=== PATIENT | male | born 1935 | race Asian ===

== ENCOUNTER 2018-08-20 19:25 | Inpatient (IN) | payer MEDICARE, OTHER ==
[~2018-08-20] VITALS: Ht 167.6 cm; Wt 74.5 kg
[~2018-08-20 19:25] MED LIST: ASPI-556 PO; CALC1TAB15 PO; CIPR-278 PO; CLOP75TA3; GLYB2.5T5 PO; LOSARTAN; METO50TA18 PO; OMEP20 PO; TAMS0.4C32 PO
[2018-08-20] MEDS ORDERED: ISOS60TA4 PO (19:53)
[2018-08-20] MEDS ORDERED: FINA5TAB41 PO (19:53)
[2018-08-20] MEDS ORDERED: AMLO-515 PO (19:53)
[2018-08-20] MEDS ORDERED: GLIM2 PO (19:53)
[2018-08-20] MEDS ORDERED: CIPR-278 PO (19:53)
[2018-08-20] MEDS ORDERED: EZET10 PO (19:53)
[2018-08-20] MEDS ORDERED: ATOR20TA86 PO (19:53)
[2018-08-20] MEDS ORDERED: METO50 PO (19:53)
[2018-08-20 19:58] LABS: GLUCOSE,POINT OF CARE 276 MG/DL (70-110)
[2018-08-20] MEDS ORDERED: 0.9% SODIUM CHLORIDE 10 ML SYRINGE IVP PRN (20:30)
[2018-08-20 20:54] LABS: BASOPHILS % (AUTO) 0.3 % (0.0-2.0); EOSINOPHILS % (AUTO) 1.3 % (1.0-6.0); HEMATOCRIT 36.9 % (41-53); HEMOGLOBIN 12.8 g/dL (13.5-17.5); LYMPHOCYTES # (AUTO) 0.9 K/uL (1.0-4.8); LYMPHOCYTES % (AUTO) 15.4 % (22.0-44.0); MEAN CORPUSCULAR HEMOGLOBIN 34.2 pg (26.0-34.0); MEAN CORPUSCULAR HGB CONC 34.6 G/dL (31.0-37.0); MEAN CORPUSCULAR VOLUME 99 fL (80-100); MONOCYTES # (AUTO) 0.5 K/uL (0.1-1.0); MONOCYTES % (AUTO) 7.9 % (2.0-9.0); NEUTROPHILS # (AUTO) 4.5 K/uL (1.8-7.7); NEUTROPHILS % (AUTO) 75.1 % (40.0-70.0); PLATELET COUNT (AUTO) 219 K/uL (150-450); RED BLOOD CELL COUNT(AUTO) 3.74 MIL/uL (4.50-5.90); RED CELL DISTRIBUTION WIDTH 12.1 % (11.5-14.5)
[2018-08-20 21:11] LABS: ANION GAP 13 mmol/L (8-16); CALCIUM, TOTAL 8.8 mg/dL (8.8-10.5); CARBON DIOXIDE 24 mmol/L (22-29); CHLORIDE 89 mmol/L (98-107); CREATININE 1.28 mg/dL (0.60-1.30); GLOMERULAR FILTR. RATE CALC 54 mL/min (>60); GLUCOSE,RANDOM 303 mg/dL (70-110); POTASSIUM 4.4 mmol/L (3.5-5.1); SODIUM SERUM 126 mmol/L (136-145); UREA NITROGEN, BLOOD 16 mg/dL (7-18)
[2018-08-20 21:17] LABS: ALANINE AMINOTRANSFERASE 56 U/L (12-78); ALBUMIN 3.7 g/dL (3.4-5.0); ALKALINE PHOSPHATASE 66 U/L (46-116); ASPARTATE AMINOTRANSFERASE 35 U/L (15-37); BILIRUBIN,TOTAL 0.7 mg/dL (0.1-1.0); TOTAL PROTEIN, SERUM 7.3 g/dL (6.4-8.2)
[2018-08-20 21:23] LABS: LACTIC ACID 2.5 mmol/L (0.4-2.0)
[2018-08-20] MEDS ORDERED: CefTRIAXone 1 GM/DEXTROSE 50 ML IV ONE (21:30)
[2018-08-20] MEDS ORDERED: CloNIDine HCL 0.1 MG TABLET PO ONE (21:30)
[2018-08-20] MEDS ORDERED: SODIUM CHLORIDE 0.9% 1,000 ML IV ONE ×2 (21:30)
[2018-08-20] MEDS ORDERED: OxyCODONE HCL/ACETAMINOPHEN 5-325 MG TABLET PO PRN (22:00)
[2018-08-20] MEDS ORDERED: ONDANSETRON HCL 4 MG/2 ML VIAL IVP PRN ×2 (22:00→23:15)
[2018-08-20] MEDS ORDERED: ACETAMINOPHEN 325 MG TABLET PO PRN ×2 (22:00→23:15)
[2018-08-20] MEDS ORDERED: BISACODYL 10 MG RECTAL RECTAL SUPPOSITORY PR PRN (23:15)
[2018-08-20] MEDS ORDERED: ZOLPIDEM TARTRATE 5 MG TABLET PO PRN (23:15)
[2018-08-20] MEDS: HEPARIN SODIUM,PORCINE 5,000 UNITS/ML VIAL SQ SCH (23:27)
[2018-08-20 23:47] LABS: APPEARANCE,URINE TURBID (CLEAR); BILIRUBIN,URINE NEGATIVE (NEGATIVE); GLUCOSE, URINE (UA) 500 mg/dL (NEGATIVE); KETONES,URINE TRACE mg/dL (NEGATIVE); LEUKOCYTE ESTERASE ,URINE SMALL (NEGATIVE); NITRATE,URINE NEGATIVE (NEGATIVE); OCCULT BLOOD,URINE LARGE (NEGATIVE); PH,URINE 6.5 (5.0-8.0); PROTEIN,URINE SEE CONFIRM (NEGATIVE)
[2018-08-20 23:58] LABS: RBC,URINE Full Field /HPF (0-2)
[2018-08-21 00:06] LABS: BACTERIA,URINE None Seen /HPF (None Seen)
[2018-08-21 00:07] LABS: SQUAMOUS EPITHELIAL CELL,UR None Seen /LPF (None Seen)
[2018-08-21 00:08] LABS: SULFOSALICYLIC ACID,URINE 1+ (Negative)
[2018-08-21] MEDS: MORPHINE SULFATE 2 MG/ML SYRINGE IVP PRN (03:50)
[2018-08-21 06:21] LABS: BASOPHILS % (AUTO) 0.2 % (0.0-2.0); EOSINOPHILS % (AUTO) 1.2 % (1.0-6.0); HEMATOCRIT 33.4 % (41-53); HEMOGLOBIN 11.6 g/dL (13.5-17.5); LYMPHOCYTES # (AUTO) 1.5 K/uL (1.0-4.8); MEAN CORPUSCULAR HEMOGLOBIN 34.7 pg (26.0-34.0); MEAN CORPUSCULAR HGB CONC 34.7 G/dL (31.0-37.0); MEAN CORPUSCULAR VOLUME 100 fL (80-100); MONOCYTES # (AUTO) 0.6 K/uL (0.1-1.0); MONOCYTES % (AUTO) 9.5 % (2.0-9.0); NEUTROPHILS # (AUTO) 4.4 K/uL (1.8-7.7); NEUTROPHILS % (AUTO) 66.1 % (40.0-70.0); PLATELET COUNT (AUTO) 183 K/uL (150-450); RED BLOOD CELL COUNT(AUTO) 3.34 MIL/uL (4.50-5.90); RED CELL DISTRIBUTION WIDTH 12.1 % (11.5-14.5)
[2018-08-21 06:53] LABS: ALANINE AMINOTRANSFERASE 44 U/L (12-78); ALBUMIN 3.1 g/dL (3.4-5.0); ALKALINE PHOSPHATASE 56 U/L (46-116); ANION GAP 9 mmol/L (8-16); ASPARTATE AMINOTRANSFERASE 32 U/L (15-37); BILIRUBIN,TOTAL 0.4 mg/dL (0.1-1.0); CALCIUM, TOTAL 8.3 mg/dL (8.8-10.5); CARBON DIOXIDE 25 mmol/L (22-29); CHLORIDE 97 mmol/L (98-107); CREATININE 0.85 mg/dL (0.60-1.30); GLUCOSE,RANDOM 123 mg/dL (70-110); POTASSIUM 3.8 mmol/L (3.5-5.1); SODIUM SERUM 131 mmol/L (136-145); TOTAL PROTEIN, SERUM 6.2 g/dL (6.4-8.2); UREA NITROGEN, BLOOD 13 mg/dL (7-18)
[2018-08-21 06:54] LABS: GLOMERULAR FILTR. RATE CALC > 60 mL/min (>60)
[2018-08-21] MEDS: TAMSULOSIN HCL 0.4 MG CAPSULE PO SCH ×2 (08:50→20:46)
[2018-08-21] MEDS: ISOSORBIDE MONONITRATE 60 MG ER TABLET PO SCH (08:50)
[2018-08-21] MEDS: DOCUSATE SODIUM 100 MG CAPSULE PO SCH ×2 (08:50→20:46)
[2018-08-21] MEDS: HEPARIN SODIUM,PORCINE 5,000 UNITS/ML VIAL SQ SCH ×3 (08:50→23:58)
[2018-08-21] MEDS: PANTOPRAZOLE SODIUM 40 MG DR TABLET PO SCH (08:50)
[2018-08-21 09:43] LABS: PROSTATE SPECIFIC ANTIGEN < 0.13 ng/mL (0.00-4.00)
[2018-08-21] MEDS: FINASTERIDE 5 MG TABLET PO SCH (11:08)
[2018-08-21] MEDS: ASPIRIN 81 MG EC TABLET PO SCH (11:08)
[2018-08-21] MEDS: EZETIMIBE 10 MG TABLET PO SCH (11:08)
[2018-08-21] MEDS: GLIMEPIRIDE 2 MG TABLET PO SCH (11:09)
[2018-08-21] MEDS: ATORVASTATIN CALCIUM 20 MG TABLET PO SCH (11:09)
[2018-08-21 15:06] VITALS: BP 124/71
[2018-08-21 18:23] LABS: GLUCOMETER DEV NAME(LOC) 6N.1; GLUCOSE,POINT OF CARE 214 MG/DL (70-110)
[2018-08-21 20:29] VITALS: BP 145/73
[2018-08-21 21:03] LABS: GLUCOMETER DEV NAME(LOC) 6N.1; GLUCOSE,POINT OF CARE 194 MG/DL (70-110)
[2018-08-21] MEDS: CefTRIAXone 1 GM/DEXTROSE 50 ML IV SCH (21:30)
[2018-08-21] MEDS ORDERED: SODIUM CHLORIDE 0.9% 250 ML IV ONE (21:31)
[2018-08-21] MEDS: HYDROCODONE/ACETAMINOPHEN 5-325 MG TABLET PO PRN (23:57)
[2018-08-22 00:16] VITALS: BP 102/51
[2018-08-22 04:41] VITALS: BP 128/53
[2018-08-22 07:19] VITALS: BP 136/57
[2018-08-22] MEDS ORDERED: LIDOCAINE 2% 5 ML JELLY TP ONE (09:00)
[2018-08-22] MEDS ORDERED: SODIUM CL IRRIG SOLN BOTTLE 250 ML IRRIG ONE (09:39)
[2018-08-22] MEDS: MORPHINE SULFATE 2 MG/ML SYRINGE IVP PRN (09:46)
[2018-08-22] MEDS: EZETIMIBE 10 MG TABLET PO SCH (10:03)
[2018-08-22] MEDS: PANTOPRAZOLE SODIUM 40 MG DR TABLET PO SCH (10:03)
[2018-08-22] MEDS: FINASTERIDE 5 MG TABLET PO SCH (10:03)
[2018-08-22] MEDS: ATORVASTATIN CALCIUM 20 MG TABLET PO SCH (10:03)
[2018-08-22] MEDS: TAMSULOSIN HCL 0.4 MG CAPSULE PO SCH ×2 (10:04→20:15)
[2018-08-22] MEDS: ASPIRIN 81 MG EC TABLET PO SCH (10:04)
[2018-08-22] MEDS: ISOSORBIDE MONONITRATE 60 MG ER TABLET PO SCH (10:04)
[2018-08-22] MEDS: HEPARIN SODIUM,PORCINE 5,000 UNITS/ML VIAL SQ SCH ×3 (10:05→22:47)
[2018-08-22] MEDS: GLIMEPIRIDE 2 MG TABLET PO SCH (10:06)
[2018-08-22] MEDS: DOCUSATE SODIUM 100 MG CAPSULE PO SCH ×2 (10:08→20:15)
[2018-08-22 11:31] VITALS: BP 137/82
[2018-08-22] MEDS ORDERED: RINGERS SOLUTION,LACTATED 1,000 ML IV ONE ×2 (11:45→11:48)
[2018-08-22] MEDS ORDERED: DEXTROSE IV ONE (11:48)
[2018-08-22] MEDS ORDERED: SODIUM CHL IV ONE (11:48)
[2018-08-22] MEDS ORDERED: SODIUM CL IRRIG SOLN BAG 3,000 ML IRRIG ONE (11:57)
[2018-08-22] MEDS ORDERED: PROPOFOL 1% 20 ML VIAL IVP ONE (12:00)
[2018-08-22] MEDS ORDERED: ONDANSETRON HCL 4 MG/2 ML VIAL IVP ONE (12:00)
[2018-08-22] MEDS ORDERED: ALBUTEROL SULFATE HFA 90 MCG/PUFF 8 GM INHALER IH ONE (12:00)
[2018-08-22] MEDS ORDERED: 0.9% SODIUM CHLORIDE 10 ML VIAL IVP ONE (12:00)
[2018-08-22] MEDS ORDERED: GLYCOPYRROLATE 0.2 MG/ML VIAL IM ONE (12:00)
[2018-08-22] MEDS ORDERED: NEOSTIGMINE METHYLSULFATE 1 MG/ML 10 ML VIAL IVP ONE (12:00)
[2018-08-22] MEDS ORDERED: LIDOCAINE/PF 2% 5 ML VIAL INJ ONE (12:00)
[2018-08-22] MEDS ORDERED: EPHEDrine SULFATE 50 MG/ML VIAL IM ONE (12:00)
[2018-08-22] MEDS ORDERED: FentaNYL CITRATE-PF 100 MCG/2 ML VIAL IVP ONE (12:00)
[2018-08-22] MEDS ORDERED: HYDROmorphone 2 MG/ML SYRINGE IVP PRN (13:45)
[2018-08-22] MEDS ORDERED: FentaNYL CITRATE-PF 100 MCG/2 ML VIAL IVP PRN (13:45)
[2018-08-22 15:11] VITALS: BP 95/56
[2018-08-22 17:14] LABS: GLUCOMETER DEV NAME(LOC) 6N.1; GLUCOSE,POINT OF CARE 154 MG/DL (70-110)
[2018-08-22 17:14] LABS: GLUCOMETER DEV NAME(LOC) 6N.1; GLUCOSE,POINT OF CARE 274 MG/DL (70-110)
[2018-08-22 20:34] VITALS: BP 138/53
[2018-08-22] MEDS: CefTRIAXone 1 GM/DEXTROSE 50 ML IV SCH (21:52)
[2018-08-23] VITALS (8 sets, daily range): BP systolic 125–160; BP diastolic 63–85
[2018-08-23] MEDS: MAGNESIUM HYDROXIDE SUSPENSION 30 ML UDCUP PO PRN (02:42)
[2018-08-23] MEDS ORDERED: SODIUM CL IRRIG SOLN BOTTLE 250 ML IRRIG ONE (02:47)
[2018-08-23 05:28] LABS: BASOPHILS % (AUTO) 0.1 % (0.0-2.0); EOSINOPHILS % (AUTO) 0.8 % (1.0-6.0); HEMATOCRIT 30.1 % (41-53); HEMOGLOBIN 10.6 g/dL (13.5-17.5); LYMPHOCYTES # (AUTO) 1.1 K/uL (1.0-4.8); LYMPHOCYTES % (AUTO) 11.8 % (22.0-44.0); MEAN CORPUSCULAR HEMOGLOBIN 35.4 pg (26.0-34.0); MEAN CORPUSCULAR HGB CONC 35.2 G/dL (31.0-37.0); MEAN CORPUSCULAR VOLUME 101 fL (80-100); MONOCYTES # (AUTO) 0.9 K/uL (0.1-1.0); MONOCYTES % (AUTO) 10.1 % (2.0-9.0); NEUTROPHILS # (AUTO) 7.2 K/uL (1.8-7.7); NEUTROPHILS % (AUTO) 77.2 % (40.0-70.0); PLATELET COUNT (AUTO) 173 K/uL (150-450)
[2018-08-23] MEDS: OXYGEN THERAPY IH SCH ×2 (08:00→22:54)
[2018-08-23] MEDS: HEPARIN SODIUM,PORCINE 5,000 UNITS/ML VIAL SQ SCH ×2 (08:00→16:00)
[2018-08-23] MEDS: ASPIRIN 81 MG EC TABLET PO SCH (08:53)
[2018-08-23] MEDS: FINASTERIDE 5 MG TABLET PO SCH (08:53)
[2018-08-23] MEDS: GLIMEPIRIDE 2 MG TABLET PO SCH (08:53)
[2018-08-23] MEDS: PANTOPRAZOLE SODIUM 40 MG DR TABLET PO SCH (08:54)
[2018-08-23] MEDS: DOCUSATE SODIUM 100 MG CAPSULE PO SCH ×2 (08:54→20:07)
[2018-08-23] MEDS: TAMSULOSIN HCL 0.4 MG CAPSULE PO SCH ×2 (08:54→20:07)
[2018-08-23] MEDS: ATORVASTATIN CALCIUM 20 MG TABLET PO SCH (08:54)
[2018-08-23] MEDS: ISOSORBIDE MONONITRATE 60 MG ER TABLET PO SCH (08:54)
[2018-08-23] MEDS: EZETIMIBE 10 MG TABLET PO SCH (08:55)
[2018-08-23] MEDS ORDERED: IPRATROPIUM BROMIDE 0.5 MG/2.5 ML NEB SOLUTION NEB PRN (09:45)
[2018-08-23] MEDS ORDERED: ALBUTEROL SULFATE 2.5 MG/0.5 ML NEB SOLUTION NEB PRN (09:45)
[2018-08-23 15:28] LABS: ALANINE AMINOTRANSFERASE 28 U/L (12-78); ALBUMIN 2.8 g/dL (3.4-5.0); ALKALINE PHOSPHATASE 48 U/L (46-116); ANION GAP 6 mmol/L (8-16); ASPARTATE AMINOTRANSFERASE 29 U/L (15-37); BILIRUBIN,TOTAL 0.5 mg/dL (0.1-1.0); CALCIUM, TOTAL 8.2 mg/dL (8.8-10.5); CARBON DIOXIDE 27 mmol/L (22-29); CHLORIDE 94 mmol/L (98-107); CREATININE 1.13 mg/dL (0.60-1.30); GLUCOSE,RANDOM 172 mg/dL (70-110); POTASSIUM 4.1 mmol/L (3.5-5.1); SODIUM SERUM 127 mmol/L (136-145); TOTAL PROTEIN, SERUM 5.9 g/dL (6.4-8.2); UREA NITROGEN, BLOOD 14 mg/dL (7-18)
[2018-08-23 15:29] LABS: GLOMERULAR FILTR. RATE CALC > 60 mL/min (>60)
[2018-08-23] MEDS ORDERED: SODIUM CHLORIDE 0.9% 1,000 ML IV SCH (16:30)
[2018-08-23 20:20] LABS: HEMATOCRIT 28.7 % (41-53)
[2018-08-23] MEDS: CefTRIAXone 1 GM/DEXTROSE 50 ML IV SCH (22:54)
[2018-08-24] MEDS: HYDROCODONE/ACETAMINOPHEN 5-325 MG TABLET PO PRN ×2 (01:18→22:16)
[2018-08-24] MEDS: GuaiFENesin [SUGAR-FREE] 200 MG/10 ML SOLUTION UDCUP PO PRN (01:46)
[2018-08-24 02:02] LABS: HEMATOCRIT 27.8 % (41-53); HEMOGLOBIN 9.5 g/dL (13.5-17.5)
[2018-08-24 04:22] VITALS: BP 150/76
[2018-08-24 06:49] LABS: HEMATOCRIT 28.6 % (41-53)
[2018-08-24 07:05] VITALS: BP 142/73
[2018-08-24] MEDS: DOCUSATE SODIUM 100 MG CAPSULE PO SCH ×2 (08:59→19:39)
[2018-08-24] MEDS: FINASTERIDE 5 MG TABLET PO SCH (08:59)
[2018-08-24] MEDS: ASPIRIN 81 MG EC TABLET PO SCH (08:59)
[2018-08-24] MEDS: HEPARIN SODIUM,PORCINE 5,000 UNITS/ML VIAL SQ SCH ×4 (09:00→23:46)
[2018-08-24] MEDS: TAMSULOSIN HCL 0.4 MG CAPSULE PO SCH ×2 (09:03→19:39)
[2018-08-24] MEDS: PANTOPRAZOLE SODIUM 40 MG DR TABLET PO SCH (09:03)
[2018-08-24] MEDS: ISOSORBIDE MONONITRATE 60 MG ER TABLET PO SCH (09:03)
[2018-08-24] MEDS: ATORVASTATIN CALCIUM 20 MG TABLET PO SCH (09:03)
[2018-08-24] MEDS: GLIMEPIRIDE 2 MG TABLET PO SCH (09:03)
[2018-08-24] MEDS: EZETIMIBE 10 MG TABLET PO SCH (09:04)
[2018-08-24] MEDS: MORPHINE SULFATE 2 MG/ML SYRINGE IVP PRN (09:07)
[2018-08-24] MEDS ORDERED: SODIUM CHLORIDE 0.9% IRRIG BTL 1,000 ML IRRIG ONE (09:13)
[2018-08-24 11:30] VITALS: BP 115/56
[2018-08-24 15:02] VITALS: BP 142/73
[2018-08-24 15:43] LABS: BASOPHILS % (AUTO) 0.3 % (0.0-2.0); EOSINOPHILS % (AUTO) 1.9 % (1.0-6.0); HEMATOCRIT 27.3 % (41-53); HEMOGLOBIN 9.5 g/dL (13.5-17.5); LYMPHOCYTES % (AUTO) 13.3 % (22.0-44.0); MEAN CORPUSCULAR HEMOGLOBIN 35.1 pg (26.0-34.0); MEAN CORPUSCULAR HGB CONC 34.7 G/dL (31.0-37.0); MEAN CORPUSCULAR VOLUME 101 fL (80-100); MONOCYTES # (AUTO) 0.8 K/uL (0.1-1.0); MONOCYTES % (AUTO) 9.6 % (2.0-9.0); NEUTROPHILS # (AUTO) 5.9 K/uL (1.8-7.7); NEUTROPHILS % (AUTO) 74.9 % (40.0-70.0); PLATELET COUNT (AUTO) 169 K/uL (150-450); RED BLOOD CELL COUNT(AUTO) 2.69 MIL/uL (4.50-5.90); RED CELL DISTRIBUTION WIDTH 12.3 % (11.5-14.5)
[2018-08-24] MEDS: MAGNESIUM HYDROXIDE SUSPENSION 30 ML UDCUP PO PRN (16:03)
[2018-08-24 16:23] LABS: ALANINE AMINOTRANSFERASE 26 U/L (12-78); ALBUMIN 2.6 g/dL (3.4-5.0); ALKALINE PHOSPHATASE 47 U/L (46-116); ANION GAP 0 mmol/L (8-16); ASPARTATE AMINOTRANSFERASE 24 U/L (15-37); BILIRUBIN,TOTAL 0.4 mg/dL (0.1-1.0); CALCIUM, TOTAL 8.2 mg/dL (8.8-10.5); CARBON DIOXIDE 32 mmol/L (22-29); CHLORIDE 93 mmol/L (98-107); CREATININE 1.12 mg/dL (0.60-1.30); GLUCOSE,RANDOM 196 mg/dL (70-110); POTASSIUM 4.2 mmol/L (3.5-5.1); SODIUM SERUM 125 mmol/L (136-145); TOTAL PROTEIN, SERUM 5.8 g/dL (6.4-8.2); UREA NITROGEN, BLOOD 13 mg/dL (7-18)
[2018-08-24 16:26] LABS: GLOMERULAR FILTR. RATE CALC > 60 mL/min (>60)
[2018-08-24 19:30] VITALS: BP 131/80
[2018-08-24] MEDS: OXYGEN THERAPY IH SCH ×2 (20:00→23:50)
[2018-08-24] MEDS ORDERED: SODIUM CL IRRIG SOLN BOTTLE 250 ML IRRIG ONE (21:21)
[2018-08-24] MEDS: CefTRIAXone 1 GM/DEXTROSE 50 ML IV SCH (22:01)
[2018-08-24 23:21] VITALS: BP 128/71
[2018-08-25] MEDS: MORPHINE SULFATE 2 MG/ML SYRINGE IVP PRN (00:40)
[2018-08-25 03:27] VITALS: BP 111/59
[2018-08-25 07:29] VITALS: BP 154/64
[2018-08-25] MEDS: TAMSULOSIN HCL 0.4 MG CAPSULE PO SCH ×2 (08:55→20:22)
[2018-08-25] MEDS: DOCUSATE SODIUM 100 MG CAPSULE PO SCH ×2 (08:55→21:00)
[2018-08-25] MEDS: OXYGEN THERAPY IH SCH (08:55)
[2018-08-25] MEDS: GLIMEPIRIDE 2 MG TABLET PO SCH (08:56)
[2018-08-25] MEDS: FINASTERIDE 5 MG TABLET PO SCH (08:56)
[2018-08-25] MEDS: PANTOPRAZOLE SODIUM 40 MG DR TABLET PO SCH (08:57)
[2018-08-25] MEDS: ASPIRIN 81 MG EC TABLET PO SCH (08:57)
[2018-08-25] MEDS: METOPROLOL TARTRATE 50 MG TABLET PO SCH ×2 (08:57→20:22)
[2018-08-25] MEDS: ISOSORBIDE MONONITRATE 60 MG ER TABLET PO SCH (08:57)
[2018-08-25] MEDS: EZETIMIBE 10 MG TABLET PO SCH (08:58)
[2018-08-25] MEDS: ATORVASTATIN CALCIUM 20 MG TABLET PO SCH (08:58)
[2018-08-25] MEDS: HEPARIN SODIUM,PORCINE 5,000 UNITS/ML VIAL SQ SCH ×2 (08:59→16:40)
[2018-08-25] MEDS ORDERED: SODIUM CHLORIDE 0.9% IRRIG BTL 1,000 ML IRRIG ONE ×2 (10:27→21:13)
[2018-08-25 10:53] VITALS: BP 125/68
[2018-08-25] MEDS: MAGNESIUM HYDROXIDE SUSPENSION 30 ML UDCUP PO PRN (11:23)
[2018-08-25 15:13] VITALS: BP 129/64
[2018-08-25 19:57] VITALS: BP 134/70
[2018-08-25] MEDS: CefTRIAXone 1 GM/DEXTROSE 50 ML IV SCH (21:21)
[2018-08-25 23:13] VITALS: BP 126/67
[2018-08-26] MEDS: MORPHINE SULFATE 2 MG/ML SYRINGE IVP PRN (02:56)
[2018-08-26] MEDS: HYDROCODONE/ACETAMINOPHEN 5-325 MG TABLET PO PRN (03:09)
[2018-08-26 03:45] VITALS: BP 131/63
[2018-08-26] MEDS ORDERED: SODIUM CHLORIDE 0.9% 250 ML IV ONE (05:22)
[2018-08-26 06:13] LABS: BASOPHILS % (AUTO) 0.4 % (0.0-2.0); HEMATOCRIT 24.3 % (41-53); HEMOGLOBIN 8.6 g/dL (13.5-17.5); LYMPHOCYTES # (AUTO) 0.9 K/uL (1.0-4.8); LYMPHOCYTES % (AUTO) 14.8 % (22.0-44.0); MEAN CORPUSCULAR HEMOGLOBIN 35.4 pg (26.0-34.0); MEAN CORPUSCULAR HGB CONC 35.3 G/dL (31.0-37.0); MEAN CORPUSCULAR VOLUME 100 fL (80-100); MONOCYTES # (AUTO) 0.6 K/uL (0.1-1.0); MONOCYTES % (AUTO) 10.2 % (2.0-9.0); NEUTROPHILS # (AUTO) 4.1 K/uL (1.8-7.7); NEUTROPHILS % (AUTO) 70.6 % (40.0-70.0); PLATELET COUNT (AUTO) 198 K/uL (150-450); RED BLOOD CELL COUNT(AUTO) 2.43 MIL/uL (4.50-5.90); RED CELL DISTRIBUTION WIDTH 12.2 % (11.5-14.5)
[2018-08-26 06:28] LABS: ALANINE AMINOTRANSFERASE 27 U/L (12-78); ALBUMIN 2.4 g/dL (3.4-5.0); ALKALINE PHOSPHATASE 42 U/L (46-116); ANION GAP 2 mmol/L (8-16); ASPARTATE AMINOTRANSFERASE 24 U/L (15-37); BILIRUBIN,TOTAL 0.4 mg/dL (0.1-1.0); CALCIUM, TOTAL 8.1 mg/dL (8.8-10.5); CARBON DIOXIDE 34 mmol/L (22-29); CHLORIDE 92 mmol/L (98-107); CREATININE 1.12 mg/dL (0.60-1.30); GLUCOSE,RANDOM 157 mg/dL (70-110); POTASSIUM 4.2 mmol/L (3.5-5.1); SODIUM SERUM 128 mmol/L (136-145); TOTAL PROTEIN, SERUM 5.6 g/dL (6.4-8.2); UREA NITROGEN, BLOOD 13 mg/dL (7-18)
[2018-08-26 06:56] LABS: GLOMERULAR FILTR. RATE CALC > 60 mL/min (>60)
[2018-08-26 07:47] VITALS: BP 122/64
[2018-08-26] MEDS ORDERED: SODIUM CHLORIDE 0.9% IRRIG BTL 1,000 ML IRRIG ONE (08:21)
[2018-08-26] MEDS: ASPIRIN 81 MG EC TABLET PO SCH (09:00)
[2018-08-26] MEDS: ATORVASTATIN CALCIUM 20 MG TABLET PO SCH (09:26)
[2018-08-26] MEDS: METOPROLOL TARTRATE 50 MG TABLET PO SCH ×2 (09:26→21:03)
[2018-08-26] MEDS: FINASTERIDE 5 MG TABLET PO SCH (09:26)
[2018-08-26] MEDS: OXYGEN THERAPY IH SCH ×3 (09:26→21:02)
[2018-08-26] MEDS: TAMSULOSIN HCL 0.4 MG CAPSULE PO SCH ×2 (09:26→21:03)
[2018-08-26] MEDS: PANTOPRAZOLE SODIUM 40 MG DR TABLET PO SCH (09:27)
[2018-08-26] MEDS: DOCUSATE SODIUM 100 MG CAPSULE PO SCH ×2 (09:27→21:02)
[2018-08-26] MEDS: ISOSORBIDE MONONITRATE 60 MG ER TABLET PO SCH (09:27)
[2018-08-26] MEDS: GLIMEPIRIDE 2 MG TABLET PO SCH (09:27)
[2018-08-26] MEDS: EZETIMIBE 10 MG TABLET PO SCH (09:28)
[2018-08-26 11:51] VITALS: BP 120/74
[2018-08-26 16:12] VITALS: BP 129/62
[2018-08-26 20:33] VITALS: BP 142/78
[2018-08-26] MEDS: CefTRIAXone 1 GM/DEXTROSE 50 ML IV SCH (21:03)
[2018-08-27] VITALS (7 sets, daily range): BP systolic 123–151; BP diastolic 52–94
[2018-08-27] MEDS: GuaiFENesin [SUGAR-FREE] 200 MG/10 ML SOLUTION UDCUP PO PRN (05:39)
[2018-08-27] MEDS ORDERED: SODIUM CHLORIDE 0.9% IRRIG BTL 1,000 ML IRRIG ONE (05:46)
[2018-08-27] MEDS: HYDROCODONE/ACETAMINOPHEN 5-325 MG TABLET PO PRN ×3 (05:46→21:48)
[2018-08-27] MEDS: GLIMEPIRIDE 2 MG TABLET PO SCH (08:00)
[2018-08-27] MEDS: OXYGEN THERAPY IH SCH ×2 (08:00→21:03)
[2018-08-27 08:47] LABS: BASOPHILS % (AUTO) 0.3 % (0.0-2.0); EOSINOPHILS % (AUTO) 5.1 % (1.0-6.0); HEMATOCRIT 24.3 % (41-53); HEMOGLOBIN 8.5 g/dL (13.5-17.5); LYMPHOCYTES # (AUTO) 0.9 K/uL (1.0-4.8); LYMPHOCYTES % (AUTO) 17.8 % (22.0-44.0); MEAN CORPUSCULAR HEMOGLOBIN 35.5 pg (26.0-34.0); MEAN CORPUSCULAR HGB CONC 35.1 G/dL (31.0-37.0); MEAN CORPUSCULAR VOLUME 101 fL (80-100); MONOCYTES # (AUTO) 0.5 K/uL (0.1-1.0); NEUTROPHILS # (AUTO) 3.2 K/uL (1.8-7.7); NEUTROPHILS % (AUTO) 65.8 % (40.0-70.0); PLATELET COUNT (AUTO) 200 K/uL (150-450); RED CELL DISTRIBUTION WIDTH 12.1 % (11.5-14.5)
[2018-08-27 08:58] LABS: ANION GAP 2 mmol/L (8-16); CALCIUM, TOTAL 8.2 mg/dL (8.8-10.5); CARBON DIOXIDE 33 mmol/L (22-29); CHLORIDE 91 mmol/L (98-107); CREATININE 1.06 mg/dL (0.60-1.30); GLOMERULAR FILTR. RATE CALC > 60 mL/min (>60); GLUCOSE,RANDOM 236 mg/dL (70-110); POTASSIUM 4.1 mmol/L (3.5-5.1); SODIUM SERUM 126 mmol/L (136-145); UREA NITROGEN, BLOOD 13 mg/dL (7-18)
[2018-08-27] MEDS: EZETIMIBE 10 MG TABLET PO SCH (10:02)
[2018-08-27] MEDS: METOPROLOL TARTRATE 50 MG TABLET PO SCH ×2 (10:02→21:48)
[2018-08-27] MEDS: PANTOPRAZOLE SODIUM 40 MG DR TABLET PO SCH (10:02)
[2018-08-27] MEDS: DOCUSATE SODIUM 100 MG CAPSULE PO SCH ×2 (10:02→21:48)
[2018-08-27] MEDS: ISOSORBIDE MONONITRATE 60 MG ER TABLET PO SCH (10:02)
[2018-08-27] MEDS: FINASTERIDE 5 MG TABLET PO SCH (10:02)
[2018-08-27] MEDS: TAMSULOSIN HCL 0.4 MG CAPSULE PO SCH ×2 (10:02→21:48)
[2018-08-27] MEDS: ATORVASTATIN CALCIUM 20 MG TABLET PO SCH (10:02)
[2018-08-27] MEDS: CefTRIAXone 1 GM/DEXTROSE 50 ML IV SCH (21:49)
[2018-08-28 04:50] VITALS: BP 127/69
[2018-08-28 06:39] LABS: BASOPHILS % (AUTO) 0.5 % (0.0-2.0); EOSINOPHILS % (AUTO) 5.7 % (1.0-6.0); HEMATOCRIT 25.3 % (41-53); HEMOGLOBIN 8.9 g/dL (13.5-17.5); LYMPHOCYTES # (AUTO) 1.4 K/uL (1.0-4.8); LYMPHOCYTES % (AUTO) 25.2 % (22.0-44.0); MEAN CORPUSCULAR HEMOGLOBIN 35.3 pg (26.0-34.0); MEAN CORPUSCULAR HGB CONC 35.3 G/dL (31.0-37.0); MEAN CORPUSCULAR VOLUME 100 fL (80-100); MONOCYTES # (AUTO) 0.6 K/uL (0.1-1.0); MONOCYTES % (AUTO) 11.2 % (2.0-9.0); NEUTROPHILS # (AUTO) 3.2 K/uL (1.8-7.7); NEUTROPHILS % (AUTO) 57.4 % (40.0-70.0); PLATELET COUNT (AUTO) 230 K/uL (150-450); RED BLOOD CELL COUNT(AUTO) 2.52 MIL/uL (4.50-5.90); RED CELL DISTRIBUTION WIDTH 12.3 % (11.5-14.5)
[2018-08-28] MEDS: OXYGEN THERAPY IH SCH ×2 (08:00→20:49)
[2018-08-28] MEDS: METOPROLOL TARTRATE 50 MG TABLET PO SCH ×2 (08:33→20:48)
[2018-08-28] MEDS: DOCUSATE SODIUM 100 MG CAPSULE PO SCH ×2 (08:33→20:49)
[2018-08-28] MEDS: EZETIMIBE 10 MG TABLET PO SCH (08:33)
[2018-08-28] MEDS: GLIMEPIRIDE 2 MG TABLET PO SCH (08:33)
[2018-08-28] MEDS: TAMSULOSIN HCL 0.4 MG CAPSULE PO SCH ×2 (08:33→20:49)
[2018-08-28] MEDS: FINASTERIDE 5 MG TABLET PO SCH (08:33)
[2018-08-28] MEDS: ATORVASTATIN CALCIUM 20 MG TABLET PO SCH (08:33)
[2018-08-28] MEDS: PANTOPRAZOLE SODIUM 40 MG DR TABLET PO SCH (08:34)
[2018-08-28] MEDS: ISOSORBIDE MONONITRATE 60 MG ER TABLET PO SCH (08:34)
[2018-08-28 11:36] VITALS: BP 108/53
[2018-08-28] MEDS ORDERED: SODIUM CHLORIDE 0.9% IRRIG BTL 1,000 ML IRRIG ONE (12:09)
[2018-08-28 15:51] VITALS: BP 126/86
[2018-08-28] MEDS ORDERED: SODIUM CHLORIDE 1 GM TABLET PO ONE (16:45)
[2018-08-28 19:29] VITALS: BP 127/61
[2018-08-28] MEDS: CefTRIAXone 1 GM/DEXTROSE 50 ML IV SCH (20:49)
[2018-08-28] MEDS: HYDROCODONE/ACETAMINOPHEN 5-325 MG TABLET PO PRN (20:49)
[2018-08-28 23:41] VITALS: BP 129/59
[2018-08-29] MEDS: HYDROCODONE/ACETAMINOPHEN 5-325 MG TABLET PO PRN (01:16)
[2018-08-29 06:03] VITALS: BP 134/66
[2018-08-29 06:19] LABS: BASOPHILS % (AUTO) 0.4 % (0.0-2.0); HEMATOCRIT 25.7 % (41-53); HEMOGLOBIN 9.2 g/dL (13.5-17.5); LYMPHOCYTES # (AUTO) 1.6 K/uL (1.0-4.8); LYMPHOCYTES % (AUTO) 27.4 % (22.0-44.0); MEAN CORPUSCULAR HGB CONC 35.8 G/dL (31.0-37.0); MEAN CORPUSCULAR VOLUME 101 fL (80-100); MONOCYTES # (AUTO) 0.6 K/uL (0.1-1.0); MONOCYTES % (AUTO) 10.7 % (2.0-9.0); NEUTROPHILS # (AUTO) 3.4 K/uL (1.8-7.7); NEUTROPHILS % (AUTO) 56.5 % (40.0-70.0); PLATELET COUNT (AUTO) 256 K/uL (150-450); RED BLOOD CELL COUNT(AUTO) 2.55 MIL/uL (4.50-5.90); RED CELL DISTRIBUTION WIDTH 12.6 % (11.5-14.5)
[2018-08-29 07:44] VITALS: BP 130/71
[2018-08-29] MEDS: OXYGEN THERAPY IH SCH (08:02)
[2018-08-29] MEDS: TAMSULOSIN HCL 0.4 MG CAPSULE PO SCH (08:03)
[2018-08-29] MEDS: METOPROLOL TARTRATE 50 MG TABLET PO SCH (08:03)
[2018-08-29] MEDS: ATORVASTATIN CALCIUM 20 MG TABLET PO SCH (08:03)
[2018-08-29] MEDS: DOCUSATE SODIUM 100 MG CAPSULE PO SCH (08:03)
[2018-08-29] MEDS: PANTOPRAZOLE SODIUM 40 MG DR TABLET PO SCH (08:03)
[2018-08-29] MEDS: GLIMEPIRIDE 2 MG TABLET PO SCH (08:03)
[2018-08-29] MEDS: ISOSORBIDE MONONITRATE 60 MG ER TABLET PO SCH (08:03)
[2018-08-29] MEDS: FINASTERIDE 5 MG TABLET PO SCH (08:03)
[2018-08-29] MEDS: EZETIMIBE 10 MG TABLET PO SCH (08:04)
[2018-08-29 09:50] VITALS: BP 127/56
[2018-08-29 11:07] VITALS: BP 131/92
[2018-08-29 23:49] LABS: GLUCOMETER DEV NAME(LOC) 5N.1; GLUCOSE,POINT OF CARE 197 MG/DL (70-110)
== END 2018-08-29 14:25 | disposition home or self-care (01) | DRG 690 ==
LOC: EMS 19:27 → 6N 08-21 14:29 → 5S 08-23 18:58
PROVIDERS: ADMIT Internal Medicine; ATTEND Internal Medicine
PROC: 0TCB8ZZ Extirpation of Matter from Bladder, Via Natural or Artificial Opening Endoscopic (ICD-10-PCS; 2018-08-22)
PROC: 0T7C8ZZ Dilation of Bladder Neck, Via Natural or Artificial Opening Endoscopic (ICD-10-PCS; principal; 2018-08-22 11:30)
DX: N39.0 Urinary tract infection, site not specified (principal); E87.1 Hypo-osmolality and hyponatremia; E44.0 Moderate protein-calorie malnutrition; N40.1 Benign prostatic hyperplasia with lower urinary tract symptoms; N13.8 Other obstructive and reflux uropathy; C61 Malignant neoplasm of prostate; I10 Essential (primary) hypertension; E78.5 Hyperlipidemia, unspecified; E11.9 Type 2 diabetes mellitus without complications; D50.0 Iron deficiency anemia secondary to blood loss (chronic); I49.3 Ventricular premature depolarization; K59.00 Constipation, unspecified; R31.0 Gross hematuria; R33.8 Other retention of urine; N36.8 Other specified disorders of urethra; E78.00 Pure hypercholesterolemia, unspecified; I25.10 Atherosclerotic heart disease of native coronary artery without angina pectoris; N32.89 Other specified disorders of bladder; Z92.3 Personal history of irradiation; Z79.82 Long term (current) use of aspirin; Z79.899 Other long term (current) drug therapy; Z68.26 Body mass index [BMI] 26.0-26.9, adult; Z95.828 Presence of other vascular implants and grafts
CPT/HCPCS: 74176; 83605; 83735; 84153; 85014; 85018; 87040; 93005; 93306; 94060; 96365; G0378; J0690; J0696; J1644; J2270; J2405; J2704; J3010; J3490; J3535; J7030; J7042; J7050; J7120

== ENCOUNTER 2019-01-24 08:24 | Day surgery (SDC) | payer MEDICARE, OTHER ==
[~2019-01-24] VITALS: Ht 167.6 cm; Wt 70.9 kg
[~2019-01-24 08:24] MED LIST changes: +AMLO1TAB33 PO; +ATOR20TA86 PO; +CALC-1038 PO; -CALC1TAB15 PO; -CIPR-278 PO; -CLOP75TA3; +D-ME473S53 PO; +EZET10TA13 PO; +FINA5TAB41 PO; +GLIM2 PO; -GLYB2.5T5 PO; +ISOS60TA4 PO; +KETO45GE2 TP; -LOSARTAN; +METO50 PO; -METO50TA18 PO; -OMEP20 PO; +RINGERS SOLUTION,LACTATED 500 ML IV ONE; +TEMO15C TP; +TETRACAINE HCL/PF 0.5% 4 ML OPHTHALMIC SOLUTION OS ONE; +UMEC1DIS IH
[2019-01-24] MEDS ORDERED: HYALURONATE SOD/CHONDROITIN SOD 0.5 ML VIAL IO ONE (08:25)
[2019-01-24] MEDS ORDERED: EPINEPHrine 1:1,000 [1 MG/ML] AMP IM ONE (08:25)
[2019-01-24] MEDS ORDERED: HYALURONATE SODIUM 12 MG/ML 0.8 ML SYRINGE IO ONE (08:25)
[2019-01-24] MEDS ORDERED: LIDOCAINE/PF 1% 2 ML VIAL IARTIC ONE (08:25)
[2019-01-24] MEDS ORDERED: POVIDONE-IODINE 10% 15 ML SOLUTION UD TP ONE (08:25)
[2019-01-24] MEDS ORDERED: PHENYLEPHRINE HCL 2.5% 2 ML OPHTHALMIC SOLUTION ONE (08:28)
[2019-01-24] MEDS ORDERED: FLURBIPROFEN SODIUM 0.03% 2.5 ML OPHTHALMIC SOLUTION ONE (08:28)
[2019-01-24] MEDS ORDERED: TROPICAMIDE 1% 2 ML OPHTHALMIC SOLUTION ONE (08:28)
[2019-01-24] MEDS ORDERED: CYCLOPENTOLATE HCL 1% 2 ML OPHTHALMIC SOLUTION ONE (08:28)
[2019-01-24] MEDS ORDERED: TETRACAINE HCL/PF 0.5% 4 ML OPHTHALMIC SOLUTION ONE (08:28)
[2019-01-24] MEDS ORDERED: OFLOXACIN 0.3% 5 ML OPHTHALMIC SOLUTION ONE (08:28)
[2019-01-24] MEDS ORDERED: RINGERS SOLUTION,LACTATED 500 ML IV ONE (08:30)
[2019-01-24] MEDS: TROPICAMIDE 1% 2 ML OPHTHALMIC SOLUTION OS SCH ×3 (08:53→09:09)
[2019-01-24] MEDS: FLURBIPROFEN SODIUM 0.03% 2.5 ML OPHTHALMIC SOLUTION OS SCH ×3 (08:54→09:08)
[2019-01-24] MEDS: PHENYLEPHRINE HCL 2.5% 2 ML OPHTHALMIC SOLUTION OS SCH ×3 (08:54→09:08)
[2019-01-24] MEDS: CYCLOPENTOLATE HCL 1% 2 ML OPHTHALMIC SOLUTION OS SCH ×3 (08:54→09:08)
[2019-01-24] MEDS: OFLOXACIN 0.3% 5 ML OPHTHALMIC SOLUTION OS SCH ×3 (08:55→09:08)
[2019-01-24 09:15] LABS: GLUCOMETER DEV NAME(LOC) SDS.; GLUCOSE,POINT OF CARE 183 MG/DL (70-110)
[2019-01-24] MEDS ORDERED: FentaNYL CITRATE-PF 100 MCG/2 ML VIAL IVP ONE (12:00)
[2019-01-24] MEDS ORDERED: MIDAZOLAM HCL 2 MG/2 ML VIAL IVP ONE (12:00)
== END 2019-01-24 13:10 | disposition home or self-care (01) ==
LOC: SURGERY 08:24
PROVIDERS: ATTEND Ophthalmology
DX: E11.36 Type 2 diabetes mellitus with diabetic cataract (principal); H25.22 Age-related cataract, morgagnian type, left eye; I10 Essential (primary) hypertension; E78.00 Pure hypercholesterolemia, unspecified; F17.210 Nicotine dependence, cigarettes, uncomplicated; Z79.82 Long term (current) use of aspirin; Z79.899 Other long term (current) drug therapy; Z95.5 Presence of coronary angioplasty implant and graft; Z98.890 Other specified postprocedural states
CPT/HCPCS: 66982; 82962; 93005; C1780; J0171; J2250; J3010; J3490 ×2; J7120

== ENCOUNTER 2019-03-08 07:55 | Day surgery (SDC) | payer MEDICARE, OTHER ==
[~2019-03-08] VITALS: Ht 167.6 cm; Wt 70.9 kg
[~2019-03-08 07:55] MED LIST changes: +CYCLOPENTOLATE HCL 1% 2 ML OPHTHALMIC SOLUTION ONE; +FLURBIPROFEN SODIUM 0.03% 2.5 ML OPHTHALMIC SOLUTION ONE; +OFLOXACIN 0.3% 5 ML OPHTHALMIC SOLUTION ONE; +PHENYLEPHRINE HCL 2.5% 2 ML OPHTHALMIC SOLUTION ONE; +TETRACAINE HCL/PF 0.5% 4 ML OPHTHALMIC SOLUTION ONE; -TETRACAINE HCL/PF 0.5% 4 ML OPHTHALMIC SOLUTION OS ONE; +TROPICAMIDE 1% 2 ML OPHTHALMIC SOLUTION ONE
[2019-03-08] MEDS ORDERED: POVIDONE-IODINE 10% 15 ML SOLUTION UD TP ONE (07:56)
[2019-03-08] MEDS ORDERED: FentaNYL CITRATE-PF 100 MCG/2 ML VIAL IVP ONE (07:56)
[2019-03-08] MEDS ORDERED: LIDOCAINE/PF 1% 2 ML VIAL IM ONE (07:56)
[2019-03-08] MEDS ORDERED: HYALURONATE SODIUM 12 MG/ML 0.8 ML SYRINGE IO ONE (07:56)
[2019-03-08] MEDS ORDERED: HYALURONATE SOD/CHONDROITIN SOD 0.5 ML VIAL IO ONE (07:56)
[2019-03-08] MEDS ORDERED: MIDAZOLAM HCL 2 MG/2 ML VIAL IVP ONE (07:56)
[2019-03-08] MEDS ORDERED: EPINEPHrine 1:1,000 [1 MG/ML] AMP IM ONE (07:56)
[2019-03-08] MEDS ORDERED: RINGERS SOLUTION,LACTATED 500 ML IV ONE (08:00)
[2019-03-08] MEDS ORDERED: TETRACAINE HCL/PF 0.5% 4 ML OPHTHALMIC SOLUTION OD ONE (08:00)
[2019-03-08] MEDS: PHENYLEPHRINE HCL 2.5% 2 ML OPHTHALMIC SOLUTION OD SCH ×3 (08:34→08:47)
[2019-03-08] MEDS: FLURBIPROFEN SODIUM 0.03% 2.5 ML OPHTHALMIC SOLUTION OD SCH ×3 (08:34→08:47)
[2019-03-08] MEDS: CYCLOPENTOLATE HCL 1% 2 ML OPHTHALMIC SOLUTION OD SCH ×3 (08:35→08:47)
[2019-03-08] MEDS: TROPICAMIDE 1% 2 ML OPHTHALMIC SOLUTION OD SCH ×3 (08:35→08:46)
[2019-03-08] MEDS: OFLOXACIN 0.3% 5 ML OPHTHALMIC SOLUTION OD SCH ×3 (08:35→08:46)
[2019-03-08 08:46] LABS: GLUCOMETER DEV NAME(LOC) SDS.; GLUCOSE,POINT OF CARE 180 MG/DL (70-110)
== END 2019-03-08 10:30 | disposition home or self-care (01) ==
LOC: SDS 07:55
PROVIDERS: ATTEND Ophthalmology
DX: E11.36 Type 2 diabetes mellitus with diabetic cataract (principal); H25.11 Age-related nuclear cataract, right eye; I10 Essential (primary) hypertension; F17.210 Nicotine dependence, cigarettes, uncomplicated; E78.5 Hyperlipidemia, unspecified; Z79.899 Other long term (current) drug therapy
CPT/HCPCS: 66984; 82962; C1780; J0171; J2250; J3010; J3490 ×2; J7120

== ENCOUNTER 2020-04-22 16:22 | Emergency (ER) | payer MEDICARE, OTHER ==
[~2020-04-22] VITALS: Ht 165.1 cm; Wt 72.7 kg
[~2020-04-22 16:22] MED LIST changes: -CYCLOPENTOLATE HCL 1% 2 ML OPHTHALMIC SOLUTION ONE; +FINA-27 PO; -FINA5TAB41 PO; -FLURBIPROFEN SODIUM 0.03% 2.5 ML OPHTHALMIC SOLUTION ONE; -OFLOXACIN 0.3% 5 ML OPHTHALMIC SOLUTION ONE; -PHENYLEPHRINE HCL 2.5% 2 ML OPHTHALMIC SOLUTION ONE; -RINGERS SOLUTION,LACTATED 500 ML IV ONE; +TAMS-13 PO; -TAMS0.4C32 PO; -TETRACAINE HCL/PF 0.5% 4 ML OPHTHALMIC SOLUTION ONE; -TROPICAMIDE 1% 2 ML OPHTHALMIC SOLUTION ONE
[2020-04-22] MEDS ORDERED: LINA5TAB PO (16:29)
[2020-04-22 17:31] LABS: BASOPHILS % (AUTO) 0.5 % (0.0-2.0); HEMATOCRIT 32.5 % (41-53); HEMOGLOBIN 10.7 g/dL (13.5-17.5); LYMPHOCYTES # (AUTO) 1.2 K/uL (1.0-4.8); LYMPHOCYTES % (AUTO) 22.6 % (22.0-44.0); MEAN CORPUSCULAR HEMOGLOBIN 30.4 pg (26.0-34.0); MEAN CORPUSCULAR VOLUME 92 fL (80-100); MONOCYTES # (AUTO) 0.7 K/uL (0.1-1.0); MONOCYTES % (AUTO) 12.6 % (2.0-9.0); NEUTROPHILS # (AUTO) 3.3 K/uL (1.8-7.7); NEUTROPHILS % (AUTO) 62.3 % (40.0-70.0); PLATELET COUNT (AUTO) 217 K/uL (150-450); RED BLOOD CELL COUNT(AUTO) 3.54 MIL/uL (4.50-5.90); RED CELL DISTRIBUTION WIDTH 14.5 % (11.5-14.5)
[2020-04-22 17:51] LABS: CALCIUM, TOTAL 8.8 mg/dL (8.8-10.5); CREATININE 1.28 mg/dL (0.60-1.30); POTASSIUM 4.1 mmol/L (3.5-5.1)
[2020-04-22 17:56] LABS: ALBUMIN 3.6 g/dL (3.4-5.0); BILIRUBIN,TOTAL 0.4 mg/dL (0.1-1.0); TOTAL PROTEIN, SERUM 7.1 g/dL (6.4-8.2)
[2020-04-22] MEDS ORDERED: IOVERSOL 350 MG/ML 100 ML VIAL ONE (19:17)
[2020-04-22] MEDS ORDERED: SODIUM CHLORIDE 0.9% 100 ML ONE (19:17)
[2020-04-22 20:40] LABS: COVID AG,FIA SOURCE NASAL SWAB
[2020-04-22 22:37] VITALS: BP 178/89
== END 2020-04-22 22:52 | disposition home or self-care (01) ==
LOC: EMS 16:26
DX: I10 Essential (primary) hypertension (principal); Z20.828 Contact with and (suspected) exposure to other viral communicable diseases; J98.11 Atelectasis; E78.00 Pure hypercholesterolemia, unspecified; E11.9 Type 2 diabetes mellitus without complications; Z79.82 Long term (current) use of aspirin; Z79.899 Other long term (current) drug therapy
CPT/HCPCS: 36415; 71045; 71275; 80053; 82962; 83880; 84484; 85025; 85379; 87426; 93005; 99285; J7050; Q9967